=== PATIENT | female | born 1975 | race Caucasian/White ===

== ENCOUNTER → 2017-06-08 | Outpatient (CLI) | payer BC | END | disposition home or self-care (01) | LOC: C.PAPS 11:58 | PROVIDERS: ATTEND Physician Assistant | DX: Z01.419 Encounter for gynecological examination (general) (routine) without abnormal findings (principal) ==

== ENCOUNTER → 2017-07-13 | Outpatient (CLI) | payer OTHER ==
--- NOTE | 2017-07-13 13:25 | MAMMOGRAPHY REPORT ---
BILATERAL FIRST EVER DIGITAL SCREENING MAMMOGRAM TOMOSYNTHESIS WITH CAD: 07/13/2017 CLINICAL HISTORY: Routine screening. Baseline exam. TECHNIQUE: Breast tomosynthesis in addition to standard 2D mammography was performed. Current study was also evaluated with a Computer Aided Detection (CAD) system. COMPARISON: No prior exams were available for comparison. BREAST COMPOSITION: There are scattered areas of fibroglandular density in both breasts. FINDINGS: No suspicious masses, calcifications, or areas of architectural distortion are noted in ei ther breast. A few scattered bilateral asymmetries are seen, which have the appearance of normal fib roglandular tissue on the tomosynthesis images. IMPRESSION: ACR BI-RADS CATEGORY 2: BENIGN There is no mammographic evidence of malignancy. A 1 year screening mammogram is recommended. The pa tient will receive written notification of the results. Approximately 10% of breast cancers are not detected with mammography. A negative mammographic report should not delay biopsy if a clinically suggestive mass is present. Aliyah Luna M.D. ah/:07/13/2017 12:24:28 Lead Infrastructure Architect: Diana MÁRQUEZ(Leonardo)(Sergio), [facility] letter sent: Normal 1/2 BI-RADS Code: ACR BI-RADS Category 2: Benign
== END | disposition home or self-care (01) ==
LOC: C.MAMM 11:17
PROVIDERS: ATTEND Physician Assistant
DX: Z12.31 Encounter for screening mammogram for malignant neoplasm of breast (principal)

== ENCOUNTER → 2017-08-31 | Outpatient (CLI) | payer OTHER ==
[~2017-08-31] MED LIST: ATOR10TA82 PO
[2017-08-31 14:02] LABS: BASO % 0.3 %; BASO ABS # 0.03 K/uL (0-0.2); HEMATOCRIT 40.8 % (37-47); HEMOGLOBIN 14.1 g/dL (12.0-16.0); IG# 0.04 K/uL (0.00-0.02); LYMPH % 22.8 %; LYMPH ABS # 2.27 K/uL (1.2-3.4); MEAN CELL VOLUME 91.5 fL (80-100); MEAN CORPUSCULAR HEMOGLOBIN 31.6 pg (25-34); MEAN CORPUSCULAR HGB CONC 34.6 g/dl (32-36); MEAN PLATELET VOLUME 12.4 fL (7.4-10.4); MONO % 6.2 %; MONO ABS # 0.62 K/uL (0.11-0.59); NEUT % 69.3 %; NEUT ABS # 6.88 K/uL (1.4-6.5); PLATELET COUNT 267 K/uL (130-400); RED CELL DISTRIBUTION WIDTH CV 12.2 % (11.5-14.5); RED CELL DISTRIBUTION WIDTH SD 40.8 fL (36.4-46.3); WHITE BLOOD COUNT 9.94 K/uL (4.8-10.8)
== END | disposition home or self-care (01) ==
LOC: C.LAB1850 12:13
PROVIDERS: ATTEND Obstetrics & Gynecology
DX: N92.0 Excessive and frequent menstruation with regular cycle (principal)

== ENCOUNTER → 2017-09-04 | Outpatient (CLI) | payer OTHER | END | disposition home or self-care (01) | LOC: C.PATHSPEC 17:49 | PROVIDERS: ATTEND Obstetrics & Gynecology | DX: N97.0 Female infertility associated with anovulation (principal) ==

== ENCOUNTER 2017-09-28 06:52 | Observation (INO) | payer OTHER ==
[2017-09-04 15:48] VITALS: BMI 31.0
--- NOTE | 2017-09-04 16:20 | PAT Medication Instructions ---
Service Date Sep 04, 2017. Current Home Medication List Atorvastatin (Lipitor), 10 MG PO HS Medication Instructions For Your Scheduled Surgery - Take the following medications as scheduled the night before surgery: Atorvastatin (Lipitor), 10 MG PO HS If you have any questions please call us at [phone] or [phone] or [phone]
[2017-09-04 16:44] LABS: ALBUMIN 4.2 gm/dl (3.4-5.0); ALT/SGPT 24 U/L (12-78); AST/SGOT 17 U/L (15-37); BLOOD UREA NITROGEN 8 mg/dl (7-18); CALCIUM 9.4 mg/dl (8.5-10.1); CARBON DIOXIDE 26 mmol/L (21-32); CREATININE 0.77 mg/dl (0.60-1.20); GLUCOSE 85 mg/dl (70-99); POTASSIUM 4.1 mmol/L (3.5-5.1); SODIUM 138 mmol/L (136-145)
[2017-09-04 16:46] LABS: ALKALINE PHOSPHATASE 77 U/L (45-117); TOTAL PROTEIN 8.3 gm/dl (6.4-8.2)
[~2017-09-28] VITALS: Ht 162.6 cm; Wt 81.4 kg
[~2017-09-28 06:52] MED LIST changes: +CEFAZOLIN 2000MG IV PUSH 15 ML IV SCH; +LACTATED RINGER'S 1000ML 1,000 ML IV SCH
--- NOTE | 2017-09-28 07:17 | History & Physical Bridge Note ---
H&P Re-Evaluation Bridge Note: I have examined the patient, reviewed the History & Physical and in the interval since the performance of the History & Physical I have noted the following changes of clinical significance: No changes noted
[2017-09-28 07:22] VITALS: Ht 162.6 cm; Wt 81.4 kg
[2017-09-28] MEDS ORDERED: LIDOCAINE HCL 2% 2 ML VIAL (20MG/ML) ONE (08:16)
[2017-09-28] MEDS ORDERED: PROPOFOL IV EMULSION 10 MG/ML 20 ML VIAL IV ONE (08:16)
[2017-09-28] MEDS ORDERED: FENTANYL CITRATE INJ 50 MCG/1 ML 2 ML VIAL ONE ×3 (08:16→10:34)
[2017-09-28] MEDS ORDERED: ONDANSETRON INJ 2 MG/ML 2 ML VIAL ONE ×2 (08:16→10:43)
[2017-09-28] MEDS ORDERED: HYDROmorphone INJ 2 MG/ML SYR/VIAL ONE (08:16)
[2017-09-28] MEDS ORDERED: LARYING-O-JET KIT (LTA) ONE (08:16)
[2017-09-28] MEDS ORDERED: MIDAZOLAM HCL 1 MG/ML 2ML VIAL ONE (08:16)
[2017-09-28] MEDS ORDERED: DEXAMETHASONE SOD INJ 4 MG/ML VIAL ONE (08:16)
[2017-09-28] MEDS ORDERED: METHYLENE BLUE 0.5% 10 ML VIAL ONE (08:53)
[2017-09-28] MEDS ORDERED: BUPIVACAINE 0.5 % 5 MG/1 ML MPF 30ML VIAL ONE (08:54)
[2017-09-28] MEDS ORDERED: KETAMINE HCL INJ 50 MG/ML 10 ML VIAL ONE (10:13)
[2017-09-28] MEDS ORDERED: NEOSTIGMINE METHYLSULFATE 5 MG/5 ML SYR ONE (10:34)
[2017-09-28] MEDS ORDERED: CISATRACURIUM BESYLATE IV SOLN 2 MG/ML 10 ML VIAL ONE (10:34)
[2017-09-28] MEDS ORDERED: GLYCOPYRROLATE INJ 0.2 MG/ML VIAL ONE (10:34)
[2017-09-28] MEDS ORDERED: KETOROLAC TROMETHAMINE 30 MG/ML VIAL ONE (10:43)
--- NOTE | 2017-09-28 11:17 | [facility] Post Operative Brief Note ---
Immediate Operative Summary Operative Date Sep 28, 2017. Pre-Operative Diagnosis Heavy Menses Post-Operative Diagnosis Same as preop Procedure(s) Performed Total Laparoscopic Hysterectomy Bilateral Salpingectomy Robot Assist; Cystoscopy Surgeon Dr. Obregon Gallery Or Museum Attendant Surgeon(s) None Estimated Blood Loss 10 ml Findings Consistent with Post-Op Diagnosis Normal appearing uterus, tubes, ovaries. Bladder normal. Specimens A. Uterus, Cervix, Bilateral Fallopian Tubes B. [place] Mass Drains foster, clear yellow Anesthesia Type General Complication(s) none Disposition Accompanied Pt To Recover: no Disposition: Recovery Room / PACU
[2017-09-28] MEDS ORDERED: MAGNESIUM HYDROXIDE SUSP 30 ML UDC PO PRN (11:30)
[2017-09-28] MEDS ORDERED: ATROPINE SULFATE 0.1 MG/ML 5ML SYR IV PRN (11:30)
[2017-09-28] MEDS ORDERED: NALOXONE HCL 0.4 MG/1 ML VIAL/CARP IV PRN (11:30)
[2017-09-28] MEDS ORDERED: FLUMAZENIL 0.1 MG/1 ML 10 ML VIAL IV PRN (11:30)
[2017-09-28] MEDS ORDERED: ONDANSETRON INJ 2 MG/ML 2 ML VIAL IV PRN ×2 (11:30)
[2017-09-28] MEDS ORDERED: SIMETHICONE 80 MG CHEW PO PRN (11:30)
[2017-09-28] MEDS ORDERED: OXYCODONE/ACETAMINOPHEN 5-325 TAB PO PRN ×2 (11:30)
[2017-09-28] MEDS ORDERED: KETOROLAC TROMETHAMINE 30 MG/ML VIAL IV. PRN (11:30)
[2017-09-28] MEDS ORDERED: HYDROmorphone INJ 0.5 MG/0.5 ML SYR IV PRN (11:30)
[2017-09-28] MEDS ORDERED: LABETALOL HCL IV 5 MG/ML 20ML IV PRN (11:30)
[2017-09-28] MEDS ORDERED: PROMETHAZINE HCL INJ 12.5 MG in SODIUM CHLORIDE 0.9% 50ML 50 ML IV PRN ×2 (11:30)
[2017-09-28] MEDS ORDERED: EpHEDrine SULFATE INJ 50 MG/ML AMP IV PRN (11:30)
--- NOTE | 2017-09-28 12:18 | Anesthesiology Progress Note ---
Anesthesia Post Op Note Date & Time Sep 28, 2017 at 12:18 Vital Signs Pain Intensity: 2 Vital Signs Past 12 Hours Date Time Temp Pulse Resp B/P (MAP) Pulse Ox O2 Delivery O2 Flow Rate FiO2 09/28/17 12:10 36.7 93 16 144/76 98 Nasal Cannula 2 09/28/17 11:55 93 16 159/103 99 Nasal Cannula 2 09/28/17 11:45 95 13 151/85 97 Free Flow/Blowby 10 09/28/17 11:35 103 12 164/109 98 Free Flow/Blowby 10 09/28/17 11:28 36.1 108 15 180/121 99 Oxymask 10 Notes Mental Status: alert / awake / arousable, participated in evaluation Pt Amnestic to Procedure: Yes Nausea / Vomiting: adequately controlled Pain: adequately controlled Airway Patency, RR, SpO2: stable & adequate BP & HR: stable & adequate Hydration State: stable & adequate Anesthetic Complications: no major complications apparent
--- NOTE | 2017-09-28 12:24 | OPERATIVE REPORT ---
DATE OF OPERATION: 09/28/2017 PREOPERATIVE DIAGNOSIS: Heavy menses. POSTOPERATIVE DIAGNOSIS: Same. PROCEDURES PERFORMED: 1. Total laparoscopic hysterectomy with bilateral salpingectomy with robotic assist. 2. Cystoscopy. 3. Removal of small pelvic mass in posterior cul-de-sac. SURGEON: Melissa Obregon DO PHOTOGRAPHIC REPRODUCTION TECHNICIAN: None. ESTIMATED BLOOD LOSS: 10 mL. FINDINGS: Normal-appearing uterus, tubes, and ovaries, bladder was normal with bilateral ureter jet, urine flow. There was a small mass in the cul-de-sac, approximately 1 cm in size that was peritoneal removed and sent to pathology. SPECIMENS: 1. Uterus, cervix and bilateral fallopian tubes. 2. Cul-de-sac mass. DRAINS: Madrigal, clear yellow. ANESTHESIA: General. COMPLICATIONS: None. DISPOSITION: Stable and good to recovery room. INDICATIONS FOR PROCEDURE: The patient is a 42-year-old G0 with pain with menses and heavy periods. She has considered all options for control of her dysmenorrhea and heavy periods and would like to proceed with hysterectomy. She is not interested in ablation or hormonal methods and would like to proceed with permanent surgical management. DESCRIPTION OF PROCEDURE: The patient was seen in the preoperative holding area. Risks, benefits, alternatives to surgery were reviewed. She elected to proceed with the case. She was taken to the operating room where general anesthesia was administered. She received Ancef preoperatively. A timeout was confirmed. The weighted speculum was placed in the vagina. The Madrigal catheter was placed. The cervix was visualized. The anterior lip was grasped with a single tooth tenaculum and the cervix was gently dilated. Bilateral stay sutures were placed and the manipulator was tied in place. Gloves were changed. Attention was then turned to the abdomen using the open Linda technique. The supraumbilical port was placed. The trocar was inserted and the camera inserted, ensuring intra-abdominal placement. The CO2 gas was turned on high flow. The patient was placed in Trendelenburg position. Bilateral ports were placed under direct visualization for a total of 5 incisions, 3 robotic arms and one nurses medical assistants phlebotomists port. Next, using the da Dewayne robot, bilateral ureters were visualized in the process of visualizing the pelvis, a small pelvic mass was noted in the posterior cul-de-sac peritoneum. This was removed using cold scissors and sent to pathology. The right fallopian tube was transected from the mesosalpinx using hot scissors. This was removed through the nurses medical assistants phlebotomists port in a similar fashion, the left fallopian tube was transected and removed. The left uteroovarian ligament was coagulated and transected, and the left round ligament was coagulated and transected. The broad ligament was then dissected and a bladder flap was taken down. In a similar fashion, the right uteroovarian ligament followed by the right round ligament were coagulated and transected, and the bladder flap was completed across the anterior aspect of the uterus. The bladder was pushed down and away and the bilateral uterine arteries were coagulated and transected. The uterus and cervix were amputated from the vaginal cuff in a circumferential incision, and the uterus was delivered through the vagina. The vaginal cuff was reapproximated using V-Loc suture. Excellent hemostasis was observed. Attention was then turned to the bladder where a Madrigal catheter was removed. Cystoscopy was performed. Bilateral urine jets were noted with the assistance of methylene blue, and the bladder appeared intact with no invading sutures. A new Madrigal catheter was placed and next Tisseel anticoagulant was used on the vaginal cuff and all raw surfaces inside the pelvis. Again, excellent hemostasis was observed. The instruments were removed. The robot was undocked and the patient was taken out of Trendelenburg position. The supraumbilical fascial incision was reapproximated using 0 Vicryl and all trocar sites were reapproximated at the level of the skin with 4-0 Vicryl. Dermabond was applied. Trocar sites were injected with plain Marcaine for analgesia. The patient was awoken from anesthesia and taken to the recovery room in stable and good condition. I attest to the content of the Intraoperative Record and any orders documented therein. Any exception s are noted below.
[2017-09-28 12:45] VITALS: BP 142/84; PULSE 90; TEMP 37; O2SAT 99
[2017-09-28 13:15] VITALS: BP 137/75; PULSE 82; O2SAT 98
[2017-09-28 13:45] VITALS: BP 132/63; PULSE 87; TEMP 37.3; O2SAT 97
[2017-09-28] MEDS ORDERED: TISSEEL FIBRIN SEALANT 4ML TOP ONE (14:41)
[2017-09-28 14:45] VITALS: BP 132/78; PULSE 80; TEMP 37.3; O2SAT 97
[2017-09-28] MEDS ORDERED: OXYC-57 PO (15:20)
--- NOTE | 2017-09-28 15:22 | Discharge Instructions ---
Discharge Instructions Date of Service Sep 28, 2017. Admission Reason for Admission: Dysmenorrhea, Heavy Menses Discharge Discharge Diagnosis / Problem: hysterectomy Discharge Goals Goal(s): Routine recovery after surgery Activity Recommendations Activity Limitations: per Instructions/Follow-up section . Instructions / Follow-Up Instructions / Follow-Up ACTIVITY RECOMMENDATIONS: Activity: * During the first week at home, your activity should be similar to that done at the hospital prior to discharge. Your primary activity is in-house walking interspersed with rest periods. Preparing lunch for yourself is acceptable. You may go up and down stairs. Try to stay up progressively longer periods of time to help regain your strength more quickly. * During the second week at home, activities should include some meal preparation, walking to strengthen abdominal muscles and riding in a car. You may drive a car and make brief shopping trips at the end of the second week at home. * Lifting should not exceed 15-20 pounds during the first month after surgery. * Sexual intercourse can usually be resumed about12 weeks after surgery depending on findings at your post-operative examinations. Bathing: * Showers or baths are permissible. Sitting in four to six inches of hot water (sitz bath) is often comforting after vaginal surgery and is permitted at any time. A sitz bath at bedtime can also assist in a better night's sleep. SPECIAL CARE INSTRUCTIONS: The major discomforts related to surgery have now passed and progressive improvement will occur. The tight uncomfortable feeling in the abdominal, pelvic and back area will gradually fade away. Fatigue may take the longest to disappear; your energy level may take several weeks to return to normal. At times you may become frustrated or impatient over not feeling as well or doing as much as you'd like , but this is a normal reaction to surgery and will pass with time. Vaginal Discharge: * Odorous, blood-tinged or brownish discharge may be present for one to three weeks after surgery. * Pads should be used and not tampons. * Stitches may be passed vaginally. * Bleeding may be somewhat increased approximately two weeks after surgery, which is related to the stitches dissolving. * If bleeding becomes free flowing, notify our office at . Bowel Care: * Constipation after surgery is very common. Foods that promote bowel activity (bran, fruit, prune juice) should be included in your diet. * A capsule, DIALOSE-PLUS, can be purchased without a prescription and can be taken daily (one or two capsules) to assist in promoting bowel activity. * If you have had vaginal surgery involving your rectum, we will discuss this when discharged from the hospital. Catheter or "CYSTO-CATH": * Approximately 80% of "bladder repair" patients will require a catheter at home until the swelling recedes. * Some patients require days to weeks before adequate bladder emptying will resume. * In general, after each time you urinate, un-clamp the catheter again. Measure the amount in the bag. When this is consistently below 100cc, call the office to make an appointment to have the catheter removed. Temperature: * Any fever above 100.4 degrees F should be reported to our office at . FOLLOW-UP: Post-Operative Appointments: * Individual instructions will have been given about the timing of your first examination, but this is usually at the end of the second week home. * You will need to call the office at soon after discharge to make the appointment for your post-op check-up if it has not already been scheduled. * Additional information regarding activity, sexual intercourse and when to return to work will be given at this appointment. WE WISH YOU A SPEEDY RECOVERY! Current Hospital Diet Patient's current hospital diet: Discharge Diet Recommended Diet: Regular Diet Procedures Procedures Performed: Total Laparoscopic Hysterectomy Bilateral Salpingectomy Robot Assist; Cystoscopy Pending Studies Studies pending at discharge: yes List of pending studies: Pathology Medical Emergencies . Who to Call and When: Medical Emergencies: If at any time you feel your situation is an emergency, please call 911 immediately. . Non-Emergent Contact Non-Emergency issues call your: Primary Care Provider, Professor Of Literacy . . "Provider Documentation" section prepared by Melissa Obregon. . [place] Drug Monitoring Program Search Results: patient reviewed within database
[2017-09-28 15:40] VITALS: BP 134/88; PULSE 84; TEMP 36.8; O2SAT 98
[2017-09-28] MEDS ORDERED: IV FLUIDS COMPLETED PRN (16:00)
[2017-09-28 17:30] VITALS: BP 134/88; PULSE 84; TEMP 36.8; O2SAT 98
[2017-09-28] MEDS ORDERED: DOCUSATE SODIUM 100 MG CAP PO SCH (21:00)
== END 2017-09-28 17:50 | disposition home or self-care (01) ==
LOC: C.ACU 06:52 → C.MS4N 11:20
PROVIDERS: ADMIT Obstetrics & Gynecology; ATTEND Obstetrics & Gynecology
DX: N92.0 Excessive and frequent menstruation with regular cycle (principal); D25.9 Leiomyoma of uterus, unspecified; E78.00 Pure hypercholesterolemia, unspecified; F17.200 Nicotine dependence, unspecified, uncomplicated; E66.9 Obesity, unspecified; Z68.31 Body mass index [BMI] 31.0-31.9, adult; Z88.2 Allergy status to sulfonamides; Z80.49 Family history of malignant neoplasm of other genital organs; Z84.2 Family history of other diseases of the genitourinary system
CPT/HCPCS: 58571; S2900